=== PATIENT | female | born 1965 | race American Indian/Alaskan Native ===

== ENCOUNTER 2018-03-16 06:49 | Day surgery (SDC) | payer BC ==
[2018-03-16 07:29] VITALS: TEMP 97.1
[2018-03-16] MEDS ORDERED: Lactated Ringer's 500 ML IV ONE ×2 (08:27)
[2018-03-16] MEDS ORDERED: Midazolam 2 MG/2 ML VIAL ONE (09:11)
[2018-03-16] MEDS ORDERED: Propofol 10 mg/ml Inj (20 ML) ONE (09:11)
[2018-03-16 10:57] VITALS: BP 112/70; PULSE 63; RESP 17; O2SAT 99
== END 2018-03-16 10:45 | disposition home or self-care (01) ==
LOC: C.ENDO 06:49
PROVIDERS: ATTEND Internal Medicine Gastroenterology
DX: Z12.11 Encounter for screening for malignant neoplasm of colon (principal); R13.10 Dysphagia, unspecified; K20.9 Esophagitis, unspecified; K29.70 Gastritis, unspecified, without bleeding; K64.8 Other hemorrhoids
CPT/HCPCS: 43239; 45378; 84703; 88305; J2001; J2250; J2704; J3010; J7120